=== PATIENT | female | born 1980 | race Caucasian/White ===

== ENCOUNTER 2018-06-21 07:02 | Emergency (ER) | payer MEDICAID ==
[2018-06-21] MEDS ORDERED: ALBUTEROL 0.083% (NEB) 2.5 MG/3 ML AMP HHN (09:34)
[2018-06-21] MEDS ORDERED: ALBUTEROL/IPRATROPIUM (NEB) 3 ML AMP HHN (09:34)
[2018-06-21] MEDS: PROMETHAZINE/CODEINE 5ML CUP PO (10:00)
[2018-06-21] MEDS: IPRATROPIUM (NEB) 0.5 MG/2.5 ML AMP HHN (10:31)
[2018-06-21] MEDS: ALBUTEROL 0.083% (NEB) 2.5 MG/3 ML AMP HHN (10:31)
== END 2018-06-21 11:17 | disposition home or self-care (01) ==
LOC: FTE 07:02
DX: J40 Bronchitis, not specified as acute or chronic (principal)
CPT/HCPCS: 94664; 99283-25